=== PATIENT | female | born 1975 | race Caucasian/White ===

== ENCOUNTER 2018-01-25 12:55 | Emergency (ER) | payer OTHER ==
[~2018-01-25] VITALS: Ht 162.6 cm; Wt 52.2 kg
[~2018-01-25 12:55] MED LIST: ATIVAN1 MG PO; BYSTOLIC 5 MG5 M1 PO; OXYCODONE HCL 55 MG PO; SEROQUEL 50 MG50 MG PO; TYLENOL325 MG PO; VIBRAMYCIN100 MG PO; VITAMIN B-1100 M1 PO; ZOFRAN ODT4 MG PO
== END 2018-01-25 14:08 | disposition home or self-care (01) ==
LOC: ER 12:55
DX: F15.10 Other stimulant abuse, uncomplicated (principal); Z88.5 Allergy status to narcotic agent; Z88.8 Allergy status to other drugs, medicaments and biological substances

== ENCOUNTER 2018-05-26 14:24 | Emergency (ER) | payer OTHER ==
[~2018-05-26] VITALS: Ht 157.5 cm; Wt 49.0 kg
[2018-05-26 18:18] VITALS: BP 103/74
== END 2018-05-26 18:21 | disposition home or self-care (01) ==
LOC: ER 14:24
DX: F29 Unspecified psychosis not due to a substance or known physiological condition (principal); F17.210 Nicotine dependence, cigarettes, uncomplicated; Z88.8 Allergy status to other drugs, medicaments and biological substances; M54.2 Cervicalgia

== ENCOUNTER 2019-02-24 08:48 | Emergency (ER) | payer OTHER ==
[~2019-02-24] VITALS: Ht 157.5 cm; Wt 49.9 kg
[~2019-02-24 08:48] MED LIST changes: +BACTRIM DS TAB1 EACH PO
[2019-02-24 10:30] VITALS: BP 127/72
== END 2019-02-24 10:30 | disposition home or self-care (01) ==
LOC: ER 08:48
DX: F41.9 Anxiety disorder, unspecified (principal); F17.210 Nicotine dependence, cigarettes, uncomplicated; F32.9 Major depressive disorder, single episode, unspecified; Z88.8 Allergy status to other drugs, medicaments and biological substances

== ENCOUNTER 2020-02-23 04:14 | Emergency (ER) | payer OTHER ==
[~2020-02-23] VITALS: Ht 157.5 cm; Wt 47.6 kg
[2020-02-23 04:15] VITALS: BP 129/91
== END 2020-02-23 04:50 | disposition home or self-care (01) ==
LOC: ER 04:14
DX: G89.29 Other chronic pain (principal); M54.2 Cervicalgia; N89.8 Other specified noninflammatory disorders of vagina; F17.210 Nicotine dependence, cigarettes, uncomplicated; Z79.899 Other long term (current) drug therapy; Z88.8 Allergy status to other drugs, medicaments and biological substances